=== PATIENT | female | born 1945 | race Caucasian/White ===

== ENCOUNTER 2020-01-08 06:40 | Inpatient (IN) | payer MEDICARE ==
[~2020-01-08] VITALS: Ht 144.8 cm; Wt 79.8 kg
--- NOTE | 2020-01-08 07:11 | NUR ---
PATIENT CAME TO ER BED 11 BIB [facility] C/O CVA. PATIENT STATES THAT HER SYMPTOMS OF LEFT-SIDED WEAKNESS SINCE YESTERDAY. NO SLURRING NOTED IN SPEECH. BILATERAL LINING PARTS SEWER AND PEDAL STRENGTH IS STRONG. C/O SLIGHT HEADACHE. PATIENT AAOX4. NO SOB. BREATHING EVENLY AND UNLABORED ON ROOM AIR. CONNECTED TO CURRICULUM AND INSTRUCTION DIRECTOR.
--- NOTE | 2020-01-08 07:14 | NUR ---
BLOOD DRAW AND SENT TO LAB FOR TESTING.
--- NOTE | 2020-01-08 07:17 | NUR ---
ASSESSED PT ON BED AWAKE, AAOX4, NOT IN RESPIRATORY DISTRESS, V/S STABLE, KEPT RESTED AND COMFORTABLE, WILL CONTINUE TO MONITOR.
[2020-01-08 07:30] VITALS: BP 123/75
[2020-01-08 07:30] LABS: BASOPHILS # (AUTO) 0.1 /CMM (0.0-0.2); BASOPHILS % (AUTO) 0.9 % (0.0-2.0); EOSINOPHILS % (AUTO) 2.5 % (0.0-6.0); HEMATOCRIT 44 % (33-45); HEMOGLOBIN 14.5 g/dL (11.5-14.8); LYMPHOCYTES % (AUTO) 21.7 % (20.0-44.0); MEAN CORPUSCULAR HGB CONC 33 g/dl (31.0-36.0); MEAN CORPUSCULAR VOLUME 83 fL (82-100); MONOCYTES # (AUTO) 0.6 /CMM (0.1-1.30); MONOCYTES % (AUTO) 6.5 % (2.0-12.0); NEUTROPHILS # (AUTO) 6.4 /CMM (1.8-8.9); NEUTROPHILS % (AUTO) 68.4 % (43.0-81.0); PLATELET COUNT (AUTO) 430 /CMM (150-450); RED BLOOD CELL COUNT(AUTO) 5.33 MIL/uL (4.0-5.2); WHITE BLOOD COUNT (AUTO) 9.3 K/uL (4.3-11.0)
--- NOTE | 2020-01-08 07:35 | NUR ---
PT IS WHEELED TO CT SCAN VIA [facility].
[2020-01-08 07:42] LABS: ALANINE AMINOTRANSFERASE 19 U/L (12-78); ALBUMIN 3.6 g/dL (3.4-5.0); ALKALINE PHOSPHATASE 101 U/L (46-116); ASPARTATE AMINOTRANSFERASE 19 U/L (15-37); BILIRUBIN,DIRECT 0.1 mg/dL (0.0-0.2); BILIRUBIN,TOTAL 0.5 mg/dL (0.2-1.0); CARBON DIOXIDE 26 mmol/L (21-32); CHLORIDE 101 mmol/L (98-107); CHOLESTEROL 247 mg/dL (<200); CREATININE 0.9 mg/dL (0.6-1.3); GLUCOSE 124 mg/dL (74-106); HDL CHOLESTEROL 54 mg/dL (40-60); LDL 170 mg/dL (0-99); POTASSIUM 3.9 mmol/L (3.5-5.1); SODIUM SERUM 138 mmol/L (136-145); TOTAL PROTEIN, SERUM 8.1 g/dL (6.4-8.2); TRIGLYCERIDES 86 mg/dL (30-150); UREA NITROGEN, BLOOD 13 mg/dL (7-18)
--- NOTE | 2020-01-08 08:48 | NUR ---
PAGED [facility].
[2020-01-08] MEDS ORDERED: ASPIRIN 325 MG TABLET PO ONE (09:00)
[2020-01-08] MEDS ORDERED: ASPIRIN 325 MG TABLET ONE (09:00)
[2020-01-08] MEDS ORDERED: ENALAPRILAT INJ (1.25 MG/ML) 1.25 MG/ML VIAL IV ONE (09:02)
--- NOTE | 2020-01-08 09:17 | NUR ---
AUTO TIRE RECAPPER/MED RECON UNABLE TO UPDATE HOME MEDICATION INFORMATION. PATIENT UNABLE TO PROVIDE ANY INFORMATION SUCH NAME OF THE MEDICATION OR THE PRESCRIBING DOCTOR. PER PATIENT "I HAVE NOT TAKEN MY PRESCRIBED MEDICATION FOR MORE THAN 1 YEAR". CALLED PHARMACY OF CHOICE, PER [facility] IN [place] "NO MEDICATION PROFILE NOTED FOR THE PATIENT".
[2020-01-08] MEDS ORDERED: ENALAPRILAT INJ (1.25 MG/ML) 1.25 MG/ML VIAL IV PRN ×2 (09:30→10:00)
--- NOTE | 2020-01-08 10:08 | NUR ---
NURSING SUP GAVE [phone].
--- NOTE | 2020-01-08 10:18 | NUR ---
REPORT GIVEN TO MARKELL OBANDO FOR SHANDRA.
[2020-01-08 10:30] VITALS: BP 141/81
[2020-01-08] MEDS ORDERED: hydrALAZINE HCL IV 20 MG VIAL IV PRN (10:30)
[2020-01-08] MEDS ORDERED: MAG HYDROX/AL HYDROX/SIMETH 30 ML UDC PO PRN (10:30)
--- NOTE | 2020-01-08 10:30 | NUR ---
ADMIT TO TELE RECEIVED PT FROM ER WITH ADMITTING DX OF STROKE. APPARENTLY PT C/O L SIDED WEAKNESS AND SLUREED SPPECH AND THATS WHAT PROMPTED HER TO GO TO THE HOSPITAL. PT HAS HX OF TRIPLE BYPASS SURGERY IN 2015, HTN AND ANXIETY. PT IS AOX4, NO SLURRED SPEECH NOTED. PT DOES HAVE SOME MILD WEAKNESS TO L UPPER AND LOWER EXT. PT IS ABLE TO AMBULATE BUT NEEDS ASSISTANCE. GAIT IS UNSTEADY. NO C/O OF HEADACHE OR DIZZINESS AT THIS TIME. PT IS CONTINENT OF B/B. LBM ACCORDING TO PT WAS YESTERDAY. BODY CHECK DONE. SKIN IS INTACT EXCEPT FOR BLE VARICOSE VEINS. IV ACCESS NOTED ON L AC G18 NS RUNNING AT 75ML/HR. MEL SEN AWARE OF PTS ADMISSION. ALL ADMISSION ORDERS WERE PLACED BY HIM IN THE SYSTEM. NOTED AND CARRIED OUT. WILL CONT TO MONITOR
--- NOTE | 2020-01-08 10:45 | NUR ---
NURSING SWALLOW SCREEN NURSING SWALLOW SCREEN DONE. PT IS ABLE TO TOLERATE REGULAR FOOD AND LIQUIDS. NO PROBLEMS WITH SWALLOWING OR CHEWING NOTED.
[2020-01-08 11:08] LABS: MAGNESIUM 2.4 mg/dL (1.8-2.4)
[2020-01-08 11:22] LABS: THYROID STIMULATING HORMONE 3.771 uIU/mL (0.358-3.74)
--- NOTE | 2020-01-08 11:30 | NUR ---
REFUSED FLU AND PNA VACCINE PT REFUSING FLU OR PNA VACCINE. SHE BELIEVES IT WILL NOT WORK AND THAT SHE THINKS SHE DOESNT NEED IT AND STATES THAT SHE HAS NEVER GOTTEN IT.
[2020-01-08] MEDS: PANTOPRAZOLE 40 MG TABLET.DR PO SCH (11:32)
[2020-01-08] MEDS: ENOXAPARIN SODIUM 40 MG/0.4 ML DISP.SYRIN SQ SCH (11:33)
[2020-01-08] MEDS: IV NS 0.9% 1,000 ML IV PRN (11:58)
[2020-01-08] MEDS ORDERED: CLOPIDOGREL BISULFATE 75 MG TABLET PO ONE (14:37)
--- NOTE | 2020-01-08 15:36 | NUR ---
Social service consult requested by MD for stroke protocol. Per MD notes and chart review, pt is a 74-year-old female with past medical history of essential hypertension, hyperlipidemia, CAD with CABG (triple bypass in 2015), presented to the emergency department via rescue ambulance from home with complaint of left-sided body weakness and slurred speech since yesterday 08:[address] scan of the head performed in emergency department showed new hypodensity within the right kline radiata, suspect for the presence of subacute infarct. VITICULTURE TEACHER met with the pt bedside. VITICULTURE TEACHER introduced self and purpose of the visit. Pt is alert and oriented x 4. Pt is very pleasant and cooperative with SW. Pt reports, she lives with her 37-year-old son and a roommate who pt had worked with in the past. Pt denies any depressive symptoms. Pt states, " I feel some anxiety, but I am a worrier by nature." Pt denies suicidal and homicidal ideations and visual/auditory hallucinations at this time. Pt reports to be ambulatory and independent with her ADL's prior to hospitalization. However, pt is using a walker while at the hospital. Pt reports to have triple bypass surgery 4 to 5 years ago. VITICULTURE TEACHER provided pt with active listening, positive coping skills and supportive counseling. No other social service needs are requested at this time. VITICULTURE TEACHER is available, if needed. SW completed PhQ-9 intervention and pt. scored a 3.
[2020-01-08 16:00] VITALS: BP 150/79
--- NOTE | 2020-01-08 18:12 | NUR ---
MS RN CLOSING NOTES RECEIVED PT IN BED AWAKE ALERT AND ORIENTED X4. NO CARDIAC OR RESP DISTRESS NOTED. NO SOB. BREATHING EVEN AND UNLABORED. PT DOES HAVE SOME MILD WEAKNESS TO L UPPER AND LOWER EXT. PT IS ABLE TO AMBULATE BUT NEEDS ASSISTANCE. GAIT IS UNSTEADY. NO C/O OF HEADACHE OR DIZZINESS AT THIS TIME. PT IS CONTINENT OF B/B. IV ACCESS NOTED ON L AC G18 NS RUNNING AT 75ML/HR. DVT PUMPS IN PLACE. SAFETY PRECAUTIONS IN PLACE. BED LOCKED AND IN LOW POSITION. WILL CONT TO MONITOR.
--- NOTE | 2020-01-08 19:20 | NUR ---
RN OPEN NOTES RECEIVED PATIENT AWAKE IN BED. A/OX4. NO SIGNS OF DISTRESS OR DISCOMFORT. BREATHING EVEN AND UNLABORED. ON TELE MONITOR WITH SR 98 NOTED. IV ACCESS IN LAC WITH NS INFUSING, PATENT AND INTACT, NO SIGNS OF REDNESS OR INFILTRATION. BED IN LOW LOCKED POSITION WITH SIDE RAILS X2. CALL LIGHT WITHIN REACH. WILL CONTINUE TO MONITOR.
[2020-01-08 20:00] VITALS: BP 170/83
[2020-01-08] MEDS: ACETAMINOPHEN 325 MG TABLET PO PRN (20:56)
--- NOTE | 2020-01-08 20:56 | NUR ---
RN NOTES ADMINISTERED TYLENOL 650 MG ORDERED, PATIENT COMPLAIN OF FRONTAL HEADACHE 5/10. WILL CONTINUE TO MONITOR.
[2020-01-08] MEDS ORDERED: SIMVASTATIN 20 MG TABLET PO SCH (22:00)
[2020-01-08] MEDS: ATORVASTATIN 40 MG TABLET PO SCH (22:03)
[2020-01-09] VITALS: BP 133/78
[2020-01-09 04:00] VITALS: BP 130/76
--- NOTE | 2020-01-09 07:06 | NUR ---
RN CLOSING NOTES PATIENT RESTING IN BED, EASILY AROUSABLE. A/OX4. NO SIGNS OF DISTRESS OR DISCOMFORT. BREATHING EVEN AND UNLABORED. ON TELE MONITOR WITH SR 92 NOTED. IV ACCESS IN LAC WITH NS INFUSING, PATENT AND INTACT, NO SIGNS OF REDNESS OR INFILTRATION. ALL NEEDS MET. NO SIGNIFICANT CHANGES THROUGH THE NIGHT. BED IN LOW LOCKED POSITION WITH SIDE RAILS X2. CALL LIGHT WITHIN REACH. WILL ENDORSE TO AM SHIFT FOR SHANDRA.
--- NOTE | 2020-01-09 07:30 | NUR ---
Tele/RN Opening note Received patient in bed, AO x 4, able to responds all stimuli. Denies any discomfort, skin is warm to touch clean/dry, intact IV site. Respiratory even/unlabored with room air. Patient able to swallow pills without choking. Kept lower position of bed with elevated HOB. Call light within reach, will continue to monitor.
[2020-01-09 07:43] LABS: BASOPHILS # (AUTO) 0.1 /CMM (0.0-0.2); BASOPHILS % (AUTO) 0.9 % (0.0-2.0); HEMATOCRIT 41 % (33-45); HEMOGLOBIN 13.4 g/dL (11.5-14.8); LYMPHOCYTES % (AUTO) 21.3 % (20.0-44.0); MEAN CORPUSCULAR HGB CONC 33 g/dl (31.0-36.0); MEAN CORPUSCULAR VOLUME 83 fL (82-100); MONOCYTES # (AUTO) 0.7 /CMM (0.1-1.30); MONOCYTES % (AUTO) 7.6 % (2.0-12.0); NEUTROPHILS # (AUTO) 6.3 /CMM (1.8-8.9); NEUTROPHILS % (AUTO) 68.2 % (43.0-81.0); PLATELET COUNT (AUTO) 370 /CMM (150-450); RED BLOOD CELL COUNT(AUTO) 4.91 MIL/uL (4.0-5.2); WHITE BLOOD COUNT (AUTO) 9.2 K/uL (4.3-11.0)
[2020-01-09] MEDS: PANTOPRAZOLE 40 MG TABLET.DR PO SCH (07:51)
[2020-01-09 07:57] LABS: CALCIUM, SERUM 8.5 mg/dL (8.5-10.1); CREATININE 0.8 mg/dL (0.6-1.3); POTASSIUM 4.3 mmol/L (3.5-5.1)
[2020-01-09 08:00] VITALS: BP 157/79
[2020-01-09] MEDS: CLOPIDOGREL BISULFATE 75 MG TABLET PO SCH (08:23)
[2020-01-09] MEDS: DOCUSATE SODIUM 100 MG CAPSULE PO SCH (08:23)
[2020-01-09] MEDS: ENOXAPARIN SODIUM 40 MG/0.4 ML DISP.SYRIN SQ SCH (08:25)
[2020-01-09] MEDS ORDERED: ASPIRIN EC 325 MG TABLET.DR PO SCH (09:00)
[2020-01-09] MEDS: ONDANSETRON HCL/PF 4 MG/2 ML VIAL IV PRN (12:08)
[2020-01-09 16:00] VITALS: BP 152/91
--- NOTE | 2020-01-09 18:50 | NUR ---
Tele/RN Closing note Patient in bed, comfortably, does no c/o pain or any discomfort, skin is warm to touch clean/dry, intact IV site. Respiratory even/unlabored with room air. Echo has been done. Kept lower position of bed with elevated HOB. Call light within reach, will continue to monitor.
--- NOTE | 2020-01-09 18:50 | NUR ---
Tele/RN Closing note Patient in bed, sleeping comfortably, does no appears pain or any discomfort. Respiratory even and unlabored with ventilator, provided oral care. Skin is warm touch, kept clean/dry, skin care provided also. Keep lower position of the bed with elevated HOB, call light within reach, will endorse nightclub manager. Addendum: 01/09/20 at 1902 by YUMIKO RIDER RN Wrong patient.
--- NOTE | 2020-01-09 19:30 | NUR ---
MS RN NOTES RECEIVED ON BED A/O X 4,BREATHING REGULAR,NOT IN ANY FORM OF DISTRESS.WITH KNOWN HX OF CVA WITH RESIDUAL,LEFT SIDED WEAKNESS, SALINE LOCK LEFT AC INTACT AND PATENT,NS AT 50ML/HR RATE IN PROGRESS.ON GEL BED FOR SKIN MANAGEMENT.DVT IN USED FOR DVT PROPHYLAXIS.SPEECH CLEAR.CALL LIGHT IN REACH,NEEDS ANTICIPATED.
[2020-01-09 20:00] VITALS: BP 152/79
[2020-01-09] MEDS: ATORVASTATIN 40 MG TABLET PO SCH (21:20)
--- NOTE | 2020-01-09 21:30 | NUR ---
MS RN NOTES DUE PO MEDS ADMINISTERED,NEGATIVE FOR ASPIRATION
[2020-01-09] MEDS: IV NS 0.9% 1,000 ML IV PRN (23:50)
[2020-01-10] MEDS: ACETAMINOPHEN 325 MG TABLET PO PRN ×2 (01:00→11:25)
--- NOTE | 2020-01-10 01:00 | NUR ---
MS RN NOTES C/O MILD PAIN 3/10 ON PAIN SCALE ON BOTH UPPER ARM,MEDICATED WITH TYLENOL 650MG PO ORDERED.NEGATIVE FOR ASPIRATION
--- NOTE | 2020-01-10 06:51 | NUR ---
MS RN NOTES STILL WITH LEFT SIDED WEAKNESS,SPEECH IMPROVED,ABLE TO VERBALIZED NEEDS.IVF IN PROGRESS VIA IV PUMP ON LEFT AC.CALL LIGHT IN REACH,NEEDS ATTENDED
--- NOTE | 2020-01-10 07:30 | NUR ---
MS/RN Opening note Patient received AO x 2-3, able to responds all stimuli, pt denies pain or any discomfort at this time. Skin is warm to touch, clean/dry, intact IV site. No respiratory distress observed, even and unlabored with room air. Kept lower position of bed with elevated HOB. Call light within reach, will continue to monitor.
[2020-01-10] MEDS: PANTOPRAZOLE 40 MG TABLET.DR PO SCH (07:34)
[2020-01-10] MEDS: CLOPIDOGREL BISULFATE 75 MG TABLET PO SCH (08:20)
[2020-01-10] MEDS: DOCUSATE SODIUM 100 MG CAPSULE PO SCH (08:20)
[2020-01-10] MEDS: ENOXAPARIN SODIUM 40 MG/0.4 ML DISP.SYRIN SQ SCH (08:26)
[2020-01-10] MEDS: ONDANSETRON HCL/PF 4 MG/2 ML VIAL IV PRN (08:28)
[2020-01-10] MEDS ORDERED: IOHEXOL-350 100 ML VIAL IV ONE (11:20)
[2020-01-10] MEDS ORDERED: CT SWABBABLE VALVE TRANS SET 1 EA INFUS.SET MC ONE (11:20)
[2020-01-10] MEDS ORDERED: IV NS 0.9% 250 ML IV ONE (11:21)
--- NOTE | 2020-01-10 11:30 | NUR ---
Patient left CT of brain and carotid accompanied by transporter, c/o headache given Tylenol before pt going down satires. Pt signed consent.
--- NOTE | 2020-01-10 12:30 | NUR ---
Patient back from CT in stable condition.
[2020-01-10 16:00] VITALS: BP 161/99
--- NOTE | 2020-01-10 18:40 | NUR ---
MS/RN Closing note Patient in bed, comfortably, watching TV, does no c/o pain or any discomfort, skin is warm to touch clean/dry, intact IV site. Respiratory even/unlabored with room air. Kept lower position of bed with elevated HOB. Call light within reach, will endorse assistant shift supervisor.
[2020-01-10 20:00] VITALS: BP 180/100
--- NOTE | 2020-01-10 20:10 | NUR ---
state's attorney: received report from beena hanna at 1920. met with pt and family at bed side. pt denies any pain or discomfort at this time. noted some paresthesia to left arm and face. nihss scale performed. answered pt's concerns based on plan of care and meds, recent labs and imaging. pt able to swallow and eat, needs minimal assistance. safety precautions for fall initiated, call light in reach, will continue monitoring pt.
[2020-01-10 20:48] VITALS: BP 155/83
[2020-01-10 20:49] VITALS: BP 180/100
[2020-01-10] MEDS: ATORVASTATIN 40 MG TABLET PO SCH (21:03)
[2020-01-10] MEDS: IV NS 0.9% 1,000 ML IV PRN (21:52)
[2020-01-11] VITALS: BP 149/78
--- NOTE | 2020-01-11 02:00 | NUR ---
rn notes: pt requested to have a break from scd pump, education provided to pt regarding importance of scd in preventing blood clot formation
[2020-01-11 06:35] LABS: BASOPHILS # (AUTO) 0.1 /CMM (0.0-0.2); BASOPHILS % (AUTO) 0.9 % (0.0-2.0); EOSINOPHILS % (AUTO) 2.3 % (0.0-6.0); HEMATOCRIT 41 % (33-45); HEMOGLOBIN 13.3 g/dL (11.5-14.8); LYMPHOCYTES # (AUTO) 2.4 /CMM (0.8-4.8); LYMPHOCYTES % (AUTO) 22.8 % (20.0-44.0); MEAN CORPUSCULAR HGB CONC 33 g/dl (31.0-36.0); MEAN CORPUSCULAR VOLUME 83 fL (82-100); MONOCYTES # (AUTO) 0.8 /CMM (0.1-1.30); MONOCYTES % (AUTO) 7.8 % (2.0-12.0); NEUTROPHILS % (AUTO) 66.2 % (43.0-81.0); PLATELET COUNT (AUTO) 382 /CMM (150-450); WHITE BLOOD COUNT (AUTO) 10.6 K/uL (4.3-11.0)
--- NOTE | 2020-01-11 06:52 | NUR ---
end of shift report: pt remains a/o x3, able to communicate and make her needs known. remains with left arm paresthesia. nihss score remains at 4.md aware, neuro on the case. vs remains stable, denies any pain or discomfort at this time. all due meds administered as ordered. pt awaiting acceptance to [facility]. vs remains stable, needs attended, safety precautions for fall remains engaged, call light in reach, will endorse to day rn for continuity of care.
[2020-01-11 07:14] LABS: CALCIUM, SERUM 8.7 mg/dL (8.5-10.1); CREATININE 0.9 mg/dL (0.6-1.3); MAGNESIUM 2.3 mg/dL (1.8-2.4); PHOSPHORUS 3.7 mg/dL (2.5-4.9); POTASSIUM 4.3 mmol/L (3.5-5.1)
--- NOTE | 2020-01-11 07:45 | NUR ---
MS RN NOTES RECEIVED PATIENT IN BED, ASLEEP. PATIENT BREATHING ON ROOM AIR WITH NO SIGN OF ACUTE DISTRESS OR SOB PRESENT. NO SIGNS OF PAIN NOTED SUCH MOANING, FACIAL GRIMACING OR GUARDING. L HAND IV GAUGE # 22 PRESENT AND INFUSING NS @ 50 ML/HR. SAFETY PRECAUTIONS IN PLACE; BED IN LOW POSITION AND LOCKED, RAILS UP X 2, CALL LIGHT WITHIN REACH. WILL CONTINUE TO MONITOR PATIENT.
[2020-01-11 08:00] VITALS: BP 152/78
[2020-01-11] MEDS: PANTOPRAZOLE 40 MG TABLET.DR PO SCH (08:25)
[2020-01-11] MEDS: DOCUSATE SODIUM 100 MG CAPSULE PO SCH (09:28)
[2020-01-11] MEDS: CLOPIDOGREL BISULFATE 75 MG TABLET PO SCH (09:28)
[2020-01-11] MEDS: ENOXAPARIN SODIUM 40 MG/0.4 ML DISP.SYRIN SQ SCH (09:33)
[2020-01-11] MEDS ORDERED: VALS80TA2 PO (11:22)
[2020-01-11] MEDS ORDERED: PANT40TA2 PO (11:22)
[2020-01-11] MEDS ORDERED: DOCU-270 PO (11:22)
[2020-01-11] MEDS ORDERED: ATOR40TA PO (11:22)
[2020-01-11] MEDS ORDERED: CLOP75TA15 PO (11:22)
[2020-01-11 16:00] VITALS: BP 156/76
--- NOTE | 2020-01-11 19:33 | NUR ---
MS METAL WIRE COATING OPERATOR NOTES PATIENT DISCHARGE TO [facility]. PATIENT IN MEDICALLY STABLE CONDITION. MANUAL BP TAKEN BY 2 RNs AND IT WAS 160/98. PATIENT ON RA BREATHING EVENLY AND NO SIGNS OF SOB PRESENT. PATIENT DENIES ANY PAIN BUT SAID SHE IS VERY ANXIOUS TO MOVE TO A NEW PLACE. ALL DISCHARGE DOCUMENTATION FORMS SIGNED. TEACHING PROVIDED AND PATIENT VERBALIZED UNDERSTANDING. VALUABLES ACCOUNTED FOR AND THE FORM SIGNED. IV AND THE WRISTBAND REMOVED BEFORE PATIENT LEFT THE FLOOR. PATIENT LEFT THE FLOOR ACCOMPANIED BY TWO endless belt finisher.
== END 2020-01-11 19:40 | DRG 65 ==
LOC: ER 06:42 → TELE 10:12 → MED 01-09 09:06
PROVIDERS: ADMIT Nurse Practitioner Acute Care; ATTEND Psychiatry & Neurology Neurology
DX: I63.9 Cerebral infarction, unspecified (principal); D68.59 Other primary thrombophilia; G81.94 Hemiplegia, unspecified affecting left nondominant side; J98.11 Atelectasis; I25.10 Atherosclerotic heart disease of native coronary artery without angina pectoris; E78.5 Hyperlipidemia, unspecified; R29.702 NIHSS score 2; R40.2412 Glasgow coma scale score 13-15, at arrival to emergency department; Z95.1 Presence of aortocoronary bypass graft; Z86.73 Personal history of transient ischemic attack (TIA), and cerebral infarction without residual deficits; Z74.09 Other reduced mobility; R73.9 Hyperglycemia, unspecified; E04.2 Nontoxic multinodular goiter; I65.23 Occlusion and stenosis of bilateral carotid arteries; R29.6 Repeated falls
CPT/HCPCS: 36415; 70450-TC; 70496-TC; 70498-TC; 71045-TC; 80048-TC; 80061-TC; 80076-TC; 83735-TC; 84100-TC; 84443-TC; 84484-TC; 85025-TC; 85652-TC; 85730-TC; 87081-TC; 93307-TC; 93880-TC; 97116-TC; 97530-TC; G0378; J0360; J1650; J2405; J3490; J7030; J7050; Q9967

== ENCOUNTER 2021-03-20 17:08 | Emergency (ER) | payer MEDICAID, MEDICARE ==
[~2021-03-20] VITALS: Ht 144.8 cm; Wt 71.7 kg
[~2021-03-20 17:08] MED LIST: ATOR40TA PO; CLOP75TA15 PO; DOCU-270 PO; PANT40TA2 PO; VALS80TA2 PO
--- NOTE | 2021-03-20 17:15 | NUR ---
BIB RA 878 FROM HOME,CAREGIVER CALLED 911 AFTER CHECKING HER BP AT 221/96, DENIES ANY SX. PATIENT A/OX4, BREATHING EVEN AND UNLABORED, DENIES CHEST PAIN OR ANY OTHER DISCOMFORT. PATIENT'S ATTACHED TO THE MANGLE TENDER.
[2021-03-20] MEDS ORDERED: ENALAPRILAT INJ (1.25 MG/ML) 1.25 MG/ML VIAL IV ONE (17:23)
[2021-03-20] MEDS ORDERED: ENALAPRILAT DIHYD. (2.5MG/2ML) 1.25 MG/ML VIAL IV ONE (17:30)
--- NOTE | 2021-03-20 17:39 | NUR ---
IV LINE ESTABLISHED, BLOOD DRAWN AND SENT TO LAB.
[2021-03-20 17:44] LABS: BASOPHILS # (AUTO) 0.1 /CMM (0.0-0.2); BASOPHILS % (AUTO) 1.1 % (0.0-2.0); EOSINOPHILS % (AUTO) 0.7 % (0.0-6.0); HEMATOCRIT 41 % (33-45); HEMOGLOBIN 13.6 g/dL (11.5-14.8); LYMPHOCYTES # (AUTO) 1.5 /CMM (0.8-4.8); LYMPHOCYTES % (AUTO) 11.8 % (20.0-44.0); MEAN CORPUSCULAR HGB CONC 33 g/dl (31.0-36.0); MEAN CORPUSCULAR VOLUME 84 fL (82-100); MONOCYTES # (AUTO) 0.7 /CMM (0.1-1.30); MONOCYTES % (AUTO) 5.4 % (2.0-12.0); NEUTROPHILS # (AUTO) 10.6 /CMM (1.8-8.9); PLATELET COUNT (AUTO) 456 /CMM (150-450); RED BLOOD CELL COUNT(AUTO) 4.89 MIL/uL (4.0-5.2)
[2021-03-20 17:59] LABS: CALCIUM, SERUM 9.4 mg/dL (8.5-10.1); CARBON DIOXIDE 31 mmol/L (21-32); CHLORIDE 99 mmol/L (98-107); CREATININE 0.8 mg/dL (0.6-1.3); GLUCOSE 115 mg/dL (74-106); POTASSIUM 3.1 mmol/L (3.5-5.1); SODIUM SERUM 139 mmol/L (136-145); UREA NITROGEN, BLOOD 11 mg/dL (7-18)
--- NOTE | 2021-03-20 18:23 | NUR ---
SPOKE TO KENDAL, SON PH# [phone], HE WILL CALL THE CAREGIVER TO WAREHOUSE CONSULTANT THE PATIENT BECAUSE HE DOESN'T DRIVE.
--- NOTE | 2021-03-20 18:45 | NUR ---
REBECCA HOUSEMATE WILL EGG PASTEURIZER THE PATIENT.
--- NOTE | 2021-03-20 18:46 | NUR ---
IV removed. Catheter intact and site benign. Pressure and 4x4 applied to site. No bleeding noted.
--- NOTE | 2021-03-20 19:02 | NUR ---
Patient discharged to home in stable condition. Written and verbal after care instructions given. Patient verbalizes understanding of instruction.
[2021-03-20 19:03] VITALS: BP 151/93
== END 2021-03-20 19:03 | disposition home or self-care (01) ==
LOC: ER 17:18
DX: I10 Essential (primary) hypertension (principal); R07.89 Other chest pain; Z79.899 Other long term (current) drug therapy
CPT/HCPCS: 36415; 71045; 80048; 84484; 85025; 93005; 96374; 99285; J3490